=== PATIENT | female | born 2000 | race Caucasian/White ===

== ENCOUNTER 2018-07-07 00:24 | Emergency (ER) | payer BC ==
[~2018-07-07] VITALS: Ht 165.1 cm; Wt 72.6 kg
[2018-07-07] MEDS ORDERED: diphenhydrAMINE 50 MG/ML INJ (BENADRYL) IV STA (00:54)
[2018-07-07] MEDS ORDERED: FAMOTIDINE 20MG/2ML IV (PEPCID) IV STA (00:54)
[2018-07-07] MEDS ORDERED: methylPREDNISolone 125 MG (Solu-MEDROL) VIAL IV STA (00:54)
--- NOTE | 2018-07-07 01:03 | ED Integumentary General ---
General Chief Complaint: Allergic Reaction Stated Complaint: SEVERE ITCHING ALL OVER:4 WEEKS Nursing Triage Note: generalized rash/itching, worse at night. Source: patient History of Present Illness Date Seen by Provider: Jul 07, 2018 Time Seen by Provider: 00:45 Initial Comments PT ARRIVES VIA POV FROM HOME C/O VERY ITCHY RASH ALL OVER BODY FOR A COUPLE OF MONTHS PT STATES IT STARTED WHEN SHE WAS 33 WEEKS , AND SHE DELIVERED 4 WEEKS AGO-- FOR PRE-ECLAMPSIA RASH WENT AWAY FOR A FEW DAYS AFTER SHE DELIVERED AND THEN IT CAME BACK AND STATES " THEN IT SPREAD LIKE WILDFIRE" STATES ITCHING IS MUCH WORSE AT NIGHT AND IS UNABLE TO SLEEP DUE TO ITCHING HAS NOT TAKEN ANYTHING FOR SYMPTOMS EXCEPT SHE TOOK 1 ZANTAC TONIGHT WITHOUT RELIEF PT STATES HER HOME HOUSEKEEPER TESTED HER LIVER ENZYMES WHILE AND THEY WERE REPORTEDLY NORMAL, BUT HAS NOT HAD THEM RECHECKED YET HAS NOT FOLLOWED UP WITH ANYONE SINCE DELIVERY--IS NOT DUE FOR POST EXAM FOR ANOTHER COUPLE OF WEEKS--JULY 24, 2018 PT IS PT IS STILL HAVING LIGHT BLEEDING. PT IS NOT ON CONTROL OR ANY MEDICATIONS NO ONE ELSE IN HOUSEHOLD HAS SAME NO SWELLING ANYWHERE, NO DIFFICULTY SWALLOWING OR BREATHING NO HISTORY OF SIMILAR. PCP: LIA BARRON HOME HOUSEKEEPER: LIA PINK Allergies and Home Medications Allergies Coded Allergies: No Known Drug Allergies (Unverified , 09/01/11) Home Medications Famotidine 40 Mg Tablet, 40 MG PO DAILY Prescribed by: MALCOM HERNANDEZ on 07/07/18110 Hydroxyzine HCl 25 Mg Tablet, 25-50 MG PO Q6H Prescribed by: MALCOM HERNANDEZ on 07/07/18110 Methylprednisolone 4 Mg Tab.ds.pk, 4 MG PO UD Prescribed by: MALCOM HERNANDEZ on 07/07/18110 Permethrin 60 Gm Cream..g., 60 GM TP UD APPLY DIRECTED. REPEAT TREATMENT IN 1 WEEK Prescribed by: MALCOM HERNANDEZ on 07/07/18110 Patient Home Medication List Home Medication List Reviewed: Yes Review of Systems Review of Systems Constitutional: no symptoms reported EENTM: no symptoms reported Respiratory: no symptoms reported Cardiovascular: no symptoms reported Gastrointestinal: no symptoms reported Genitourinary: no symptoms reported : No Musculoskeletal: no symptoms reported Skin: see HPI Psychiatric/Neurological: No Symptoms Reported Endocrine: No Symptoms Reported Hematologic/Lymphatic: No Symptoms Reported Past Jrsyyiq-Uinzkt-Ktidec Hx Patient Social History Alcohol Use: Denies Use Recreational Drug Use: No Smoking Status: Never a Smoker 2nd Hand Smoke Exposure: No Recent Foreign Travel: No Contact w/Someone Who Travel: No Recent Infectious Disease Expo: No Recent Hopitalizations: No Immunizations Up To Date Tetanus Booster (TDap): Less than 5yrs PED Vaccines UTD: Yes Seasonal Allergies Seasonal Allergies: No Past Medical History Surgeries: Yes Appendectomy, Section Respiratory: No Cardiac: Yes (preeclampsia) Hypertension Neurological: No : No Reproductive Disorders: No Genitourinary: No Gastrointestinal: No Musculoskeletal: No Endocrine: No HEENT: No Cancer: No Psychosocial: No Integumentary: No Blood Disorders: No Physical Exam Vital Signs Vital Signs - First Documented 07/07/18 00:35 Temp 97.5 Pulse 84 Resp 16 B/P (MAP) 133/82 (99) Pulse Ox 100 O2 Delivery Room Air Capillary Refill : Less Than 3 Seconds General Appearance: WD/WN, no apparent distress HEENT: PERRL/EOMI, normal ENT inspection Neck: normal inspection Cardiovascular: regular rate, rhythm, no murmur Respiratory: normal breath sounds Gastrointestinal: non tender, soft Back: normal inspection Extremities: normal inspection, no pedal edema, normal capillary refill Neurologic/Psychiatric: energy scheduler II-XII nml as tested, no motor/sensory deficits, alert, normal mood/affect, oriented x 3 Skin: normal color, warm/dry, rash (EXTENSIVE DISCRETE ERYTHEMATTOUS PAPULES 2- 3 MM IN DIAMETER, SOME WITH MUCH EXCORIATION AND SCABBING. SOME AREAS WITH WHAT APPEAR TO BE SMALL WHEALS--4-5 MM IN DIAMETER. ARMS, LEGS, DORSUM OF HANDS, DORSUM OF FEET, TRUNK. AXILLA, PALMS, SOLES, FACE/HEAD AND NECK ARE SPARED. DOES HAVE A FEW IN FINGER WEBS. ) Progress/Results/Core Measures Results/Orders Lab Results Laboratory Tests Test 07/07/18 01:05 Range/Units White Blood Count 10.9 4.3-11.0 10^3/uL Red Blood Count 4.22 L 4.35-5.85 10^6/uL Hemoglobin 11.9 11.5-16.0 G/DL Hematocrit 36 35-52 % Mean Corpuscular Volume 85 80-99 FL Mean Corpuscular Hemoglobin 28 25-34 PG Mean Corpuscular Hemoglobin Concent 33 32-36 G/DL Red Cell Distribution Width 13.4 10.0-14.5 % Platelet Count 366 130-400 10^3/uL Mean Platelet Volume 8.7 7.4-10.4 FL Neutrophils (%) (Auto) 54 42-75 % Lymphocytes (%) (Auto) 23 12-44 % Monocytes (%) (Auto) 10 0-12 % Eosinophils (%) (Auto) 13 H 0-10 % Basophils (%) (Auto) 0 0-10 % Neutrophils # (Auto) 5.9 1.8-7.8 X 10^3 Lymphocytes # (Auto) 2.5 1.0-4.0 X 10^3 Monocytes # (Auto) 1.0 0.0-1.0 X 10^3 Eosinophils # (Auto) 1.5 H 0.0-0.3 10^3/uL Basophils # (Auto) 0.0 0.0-0.1 10^3/uL Sodium Level 140 135-145 MMOL/L Potassium Level 3.5 L 3.6-5.0 MMOL/L Chloride Level 105 98-107 MMOL/L Carbon Dioxide Level 22 21-32 MMOL/L Anion Gap 13 5-14 MMOL/L Blood Urea Nitrogen 19 H 7-18 MG/DL Creatinine 0.71 0.60-1.30 MG/DL Estimat Glomerular Filtration Rate > 60 BUN/Creatinine Ratio 27 Glucose Level 96 70-105 MG/DL Calcium Level 9.5 8.5-10.1 MG/DL Corrected Calcium 9.3 8.5-10.1 MG/DL Total Bilirubin 0.3 0.1-1.0 MG/DL Aspartate Amino Transf (AST/SGOT) 22 5-34 U/L Alanine Aminotransferase (ALT/SGPT) 20 0-55 U/L Alkaline Phosphatase 109 40-136 U/L Total Protein 7.6 6.4-8.2 GM/DL Albumin 4.3 3.2-4.5 GM/DL TSH [facility] Testing 1.56 0.35-4.94 UIU/ML Serum Test, Qualitative NEGATIVE NEGATIVE My Orders Orders - DAVID,MALCOM K DO Saline Lock/Iv-Start (07/07/18 00:54) Cbc With Automated Diff (07/07/18 00:54) Comprehensive Metabolic Panel (07/07/18 00:54) Hcg,Qualitative Serum (07/07/18 00:54) Thyroid Analyzer (07/07/18 00:54) Diphenhydramine Injection (Benadryl Inje (07/07/18 00:54) Methylprednisolone Sod Succ (Solu-Medrol (07/07/18 00:54) Famotidine Injection (Pepcid Injection) (07/07/18 00:54) Rx-Hydroxyzine Pamoate (Rx-Vistaril) (07/07/18 02:07) Vital Signs/I&O 07/07/18 00:35 Temp 97.5 Pulse 84 Resp 16 B/P (MAP) 133/82 (99) Pulse Ox 100 O2 Delivery Room Air Blood Pressure Mean: 99 Progress Progress Note : Progress Note ITCHING MUCH IMPROVED WITH MEDICATIONS PT IS BEING DISMISSED, NOW GIVES DIFFERENT INFORMATION NOW STATES SHE DID NOT HAVE RASH WHILE SHE WAS --ONLY ITCHING, THEN AFTER SHE DELIVERED, SHE DEVELOPED THE RASH NOW STATES ITCHING WAS SEVERE ALL DAY AND ALL NIGHT, UNTIL THIS PAST SUNDAY, WHEN SHE WAS SEEN AT [facility] IN CLINIC HERE IN [place]. STATES SHE GOT A STEROID SHOT AND IT HELPED FOR A DAY OR TWO, AND THE ITCHING WAS BETTING DURING THE DAY AND WORSE AT NIGHT, AND STATES THAT SHE HAS AN APPOINTMENT WITH [facility]ET[facility] TE[facility]ER, DR. CHANEY HERE IN [place] ON SUNDAY--STATES SHE CALLED AND MADE APPOINTMENT WHILE SHE WAS AT THE WALK IN CLINIC. WILL TREAT FOR SCABIES, RASH DOES HAVE APPEARANCE AND DISTRIBUTION OF SCABIES , AND HAS BEEN GOING ON FOR OVER 9 WEEKS AND IS GETTING WORSE. Departure Impression Primary Impression: Rash Additional Impression: POSSIBE SCABIES Disposition: 01 HOME, SELF-CARE Condition: Stable Departure-Patient Inst. Referrals: LOREN JOHNSON MD (PCP/Family) Primary Care Physician Patient Instructions: Scabies (DC), Skin Rash (DC) Add. Discharge Instructions: APPLY LOTION INSTRUCTED, THEN CLEAN ALL CLOTHING AND BEDDING AND TOWELS THE FOLLOWING MORNING AFTER BATHING REPEAT PROCESS IN 1 WEEK FOLLOW UP WITH YOUR DR IN 2 WEEKS FOR RECHECK KEEP APPOINTMENT WITH [facility] ON SUNDAY All discharge instructions reviewed with patient and/or family. Voiced understanding. Scripts Famotidine (Pepcid) 40 Mg Tablet 40 MG PO DAILY, #10 TAB Prov: MALCOM HERNANDEZ DO 07/07/18 Hydroxyzine HCl (Hydroxyzine HCl) 25 Mg Tablet 25-50 MG PO Q6H for Itching, #20 TAB Prov: MALCOM HERNANDEZ DO 07/07/18 Permethrin (Elimite) 60 Gm Cream..g. 60 GM TP UD, #1 TUBE 1 Refill APPLY DIRECTED. REPEAT TREATMENT IN 1 WEEK Prov: MALCOM HERNANDEZ DO 07/07/18 Methylprednisolone (Medrol) 4 Mg Tab.ds.pk 4 MG PO UD, #1 PKG Prov: MALCOM HERNANDEZ DO 07/07/18 MALCOM HERNANDEZ DO Jul 07, 2018 01:03
[2018-07-07] MEDS ORDERED: PERM60CR17 TP (01:11)
[2018-07-07] MEDS ORDERED: METH4TAB PO (01:11)
[2018-07-07] MEDS ORDERED: FAMO40TA72 PO (01:11)
[2018-07-07] MEDS ORDERED: HYDR-700 PO (01:11)
[2018-07-07 01:17] LABS: BASOPHILS % (AUTO) 0 % (0-10); EOSINOPHILS # (AUTO) 1.5 10^3/uL (0.0-0.3); EOSINOPHILS % (AUTO) 13 % (0-10); HEMATOCRIT 36 % (35-52); HEMOGLOBIN 11.9 G/DL (11.5-16.0); LYMPHOCYTES # (AUTO) 2.5 X 10^3 (1.0-4.0); LYMPHOCYTES % (AUTO) 23 % (12-44); MEAN CORPUSCULAR HEMOGLOBIN 28 PG (25-34); MEAN CORPUSCULAR HGB CONC 33 G/DL (32-36); MEAN CORPUSCULAR VOLUME 85 FL (80-99); MEAN PLATELET VOLUME 8.7 FL (7.4-10.4); MONOCYTES % (AUTO) 10 % (0-12); NEUTROPHILS # (AUTO) 5.9 X 10^3 (1.8-7.8); NEUTROPHILS % (AUTO) 54 % (42-75); PLATELET COUNT 366 10^3/uL (130-400); RED BLOOD COUNT 4.22 10^6/uL (4.35-5.85); RED CELL DISTRIBUTION WIDTH 13.4 % (10.0-14.5); WHITE BLOOD COUNT 10.9 10^3/uL (4.3-11.0)
[2018-07-07 01:35] LABS: ALANINE AMINOTRANSFERASE 20 U/L (0-55); ALBUMIN 4.3 GM/DL (3.2-4.5); ALKALINE PHOSPHATASE 109 U/L (40-136); BILIRUBIN,TOTAL 0.3 MG/DL (0.1-1.0); BUN/CREATININE RATIO 27; CALCIUM 9.5 MG/DL (8.5-10.1); CARBON DIOXIDE 22 MMOL/L (21-32); CHLORIDE 105 MMOL/L (98-107); CREATININE SERUM 0.71 MG/DL (0.60-1.30); GFR ESTIMATED > 60; GLUCOSE 96 MG/DL (70-105); POTASSIUM 3.5 MMOL/L (3.6-5.0); SODIUM 140 MMOL/L (135-145); TOTAL PROTEIN 7.6 GM/DL (6.4-8.2)
[2018-07-07 01:55] LABS: TSH (THYROID ANALYZER) 1.56 UIU/ML (0.35-4.94)
[2018-07-07] MEDS ORDERED: RX-HYDROXYZINE PAMOATE 25 MG CAP #4 PO STA (02:07)
[2018-07-07 02:23] VITALS: BP 120/82
== END 2018-07-07 02:22 | disposition home or self-care (01) ==
LOC: EDUNIT# 00:24 → ER 00:27
DX: O99.73 Diseases of the skin and subcutaneous tissue complicating the puerperium (principal); R21 Rash and other nonspecific skin eruption; O16.5 Unspecified maternal hypertension, complicating the puerperium; Z98.890 Other specified postprocedural states; Z79.52 Long term (current) use of systemic steroids; Z90.49 Acquired absence of other specified parts of digestive tract
CPT/HCPCS: 36415; 80053; 84443; 84703; 85025